=== PATIENT | male | born 1930 | race Caucasian/White ===

== ENCOUNTER → 2018-05-02 | Outpatient (CLI) | payer MEDICARE ==
--- NOTE | 2018-05-02 16:52 | Diagnostic Imaging Report ---
EXAM: Renal Ultrasound INDICATION: \S\CHRONIC KIDNEY DISEASE / CYST OF KIDNEY COMPARISON: Renal ultrasound 08/20/2013 TECHNIQUE: Transverse and longitudinal images of the kidneys and bladder were obtained. FINDINGS: Right Kidney: Size: 10.7 x 4.7 x 4.2 cm Echogenicity: Normal Parenchymal thickness: Normal Collecting system: No hydronephrosis Stones: None Cyst/Mass: None Left Kidney: Size: 10.5 x 5.1 x 4.7 cm Echogenicity: Normal Parenchymal thickness: Normal Collecting system: No hydronephrosis Stones: None Cyst/Mass: * 3.1 x 2.9 x 2.9 cm simple cyst in the interpolar/superior pole. Previously 2.9 x 2.5 x 2.3 cm. * 1.4 x 1.3 x 1.5 cm simple cyst in the interpolar region. Bladder: Normal Bilateral ureteral jets are visualized. Prostate: Surgically removed. IMPRESSION: 1. Slight enlargement of the previous 3.1 cm simple left renal cyst. 2. New 1.5 cm simple left renal cyst. Signed by: Dr. Jose Agosto M.D. on 05/02/2018 4:48 PM
== END ==
LOC: US 12:48
PROVIDERS: ATTEND Urology
DX: N18.9 Chronic kidney disease, unspecified (principal); N28.1 Cyst of kidney, acquired
CPT/HCPCS: 76770

== ENCOUNTER → 2019-02-01 | Outpatient (CLI) | payer MEDICARE ==
--- NOTE | 2019-02-01 14:25 | Diagnostic Imaging Report ---
EXAMINATION: Renal ultrasound. CLINICAL HISTORY :Renal cyst COMPARISON: 05/02/2018 TECHNIQUE: Grayscale and color Doppler evaluation of the kidneys and bladder was performed in transverse and longitudinal planes. DISCUSSION: RIGHT KIDNEY: The right kidney measures 11 cm in length and shows normal renal cortical echogenicity. No hydronephrosis, shadowing calculi or solid mass lesions. LEFT KIDNEY: The left kidney measures 10.9 cm in length and shows normal renal cortical echogenicity. Slight interval increase in size of upper pole parenchymal simple cyst which now measures 2.9 x 3.9 x 2.9 cm (previously 3.1 x 2.9 x 2.9 cm). Previously described 1.5 cm interpolar left renal cyst is no longer visualized. BLADDER: Unremarkable. Right and left ureteral jets are identified. IMPRESSION: Marginal interval increase in size of now 3.9 cm left upper pole parenchymal cyst. Previously described left interpolar cyst is not visualized on the current study. Signed by: Dr. Alfred Grimes M.D. on 02/01/2019 2:21 PM
== END ==
LOC: US 11:32
PROVIDERS: ATTEND Urology
DX: N28.1 Cyst of kidney, acquired (principal)
CPT/HCPCS: 76770